=== PATIENT | female | born 1945 | race Caucasian/White ===

== ENCOUNTER 2023-11-06 19:15 | Emergency (ER) | payer MEDICARE ==
[~2023-11-06] VITALS: Ht 172.7 cm; Wt 84.0 kg
[2023-11-06 19:18] VITALS: TEMP 96.3; O2SAT 97
[2023-11-06] MEDS ORDERED: PRAM0.128 MT (21:54)
[2023-11-06] MEDS ORDERED: PRAMIPEXOLE DI-HCL 0.25MG TABLET PO SCH (22:00)
[2023-11-06] MEDS: PRAMIPEXOLE DI-HCL 0.25MG TABLET PO NR (23:00)
[2023-11-06] MEDS ORDERED: PRAMIPEXOLE DI-HCL 0.125MG TABLET PO SCH (23:00)
[2023-11-06 23:02] VITALS: BP 132/81; PULSE 55; RESP 18
[2023-11-07] MEDS ORDERED: PRAMIPEXOLE DI-HCL 0.125MG TABLET PO SCH (17:00)
== END 2023-11-06 23:02 | disposition home or self-care (01) ==
LOC: ER 19:15
DX: Z76.0 Encounter for issue of repeat prescription (principal); I10 Essential (primary) hypertension; G25.81 Restless legs syndrome; Z88.2 Allergy status to sulfonamides
CPT/HCPCS: 99283